=== PATIENT | female | born 1995 | race Caucasian/White ===

== ENCOUNTER 2020-11-13 16:02 | Emergency (ER) | payer OTHER ==
[~2020-11-13] VITALS: Ht 165.1 cm; Wt 71.5 kg
[2020-11-13] MEDS ORDERED: IBUP1TAB6 PO (16:11)
[2020-11-13] MEDS ORDERED: ONDANSETRON 4MG/2ML VIAL IV ONE ×2 (18:25→21:10)
[2020-11-13] MEDS ORDERED: MORPHINE 4 MG/ML 1ML VIAL/SYRINGE (J2270) IV ONE (18:25)
[2020-11-13] MEDS ORDERED: NS 1,000 ML IV ONE (18:25)
[2020-11-13 19:19] LABS: BASO % 0.4 % (0.0-1.0); EOS # 0.2 10^3/uL (0.0-0.5); EOS % 2.4 % (0.0-3.0); HEMATOCRIT 43.2 % (36.0-47.0); MEAN CORPUSCULAR HEMOGLOBIN 29.9 pg (27.0-33.0); MEAN CORPUSCULAR HGB CONC 34.7 g/dl (32.0-36.5); MEAN CORPUSCULAR VOLUME 86.1 fl (80.0-96.0); MONO # 0.6 10^3/uL (0.0-0.8); NEUTROPHILS # 4.2 10^3/uL (1.5-8.5); NEUTROPHILS % 60.9 % (36.0-66.0); PLATELET COUNT, AUTOMATED 211 10^3/uL (150-450); RED BLOOD COUNT 5.02 10^6/uL (4.00-5.40)
[2020-11-13 19:24] LABS: ALBUMIN 4.4 GM/DL (3.2-5.2); BILIRUBIN,DIRECT 0.1 MG/DL (0.0-0.2); BILIRUBIN,TOTAL 0.7 MG/DL (0.2-1.0); TOTAL PROTEIN 8.3 GM/DL (6.4-8.2)
--- NOTE | 2020-11-13 19:39 | REP ---
INDICATION: LLQ abd pain, known 2cm ovary cyst, severe pain. COMPARISON: None. TECHNIQUE: Multiple ultrasonographic images of the pelvis, transabdominal and Doppler imaging. FINDINGS: The uterus is anteverted and anteflexed. The uterus is upper normal size to mildly enlarged measuring 10.7 x 4.6 x 6.3 cm. The myometrium is unremarkable. The endometrium is not thickened measuring up to 7.9 mm. Right ovary: The right ovary measures 3.1 x 2.7 x 3.0 cm and is normal size. There is no dominant mass or cyst. Left ovary: Left ovary measures 3.5 x 2.7 x 3.6 cm and is normal size. There is a left ovarian cyst measuring 2.2 x 2.1 x 2.9 cm. There is vascular flow in both ovaries with the Doppler resistive index in the parenchymal arteries of the right ovary measuring 0.56 and left ovary measuring 0.79. There is a small volume of fluid in the cul-de-sac. IMPRESSION: Right ovarian cyst measuring up to 2.9 cm. No left ovarian mass or cyst. There is vascular flow in both ovaries. Uterus is anteverted and anteflexed. Small volume of free fluid in the cul-de-sac. <Electronically signed by Phillip Rubin > 11/13/201933
[2020-11-13] MEDS ORDERED: ISOVUE-370 76% 100ML VIAL As Ordered ONE (20:01)
[2020-11-13] MEDS ORDERED: KETOROLAC 30 MG/ML 1ML VIAL IV ONE (21:10)
--- NOTE | 2020-11-13 21:56 | REPVR ---
PROCEDURE INFORMATION: Exam: CT Abdomen And Pelvis With Contrast Exam date and time: 11/13/2020 8:47 PM Age: 25 years old Clinical indication: Abdominal pain; Localized; Left lower quadrant (llq); Additional info: Severe llq pain, UTI TECHNIQUE: Imaging protocol: Computed tomography of the abdomen and pelvis with contrast. Axial, coronal and sagittal reformatted images were created and reviewed. Radiation optimization: All CT scans at this facility use at least one of these dose optimization techniques: automated exposure control; mA and/or kV adjustment per patient size (includes targeted exams where dose is matched to clinical indication); or iterative reconstruction. Contrast material: ISOVUE 370; Contrast volume: 100 ml; Contrast route: INTRAVENOUS (IV); COMPARISON: US PELVIC NON-OB COMPLETE 11/13/2020 7:07 PM FINDINGS: Liver: Unremarkable. Gallbladder and bile ducts: No radiodense gallstones. No biliary ductal dilatation. Pancreas: Unremarkable. Spleen: Unremarkable. Adrenal glands: Normal. No mass. Kidneys and ureters: Subtle right greater than left renal cortical mottling/striation. No radiodense calculi. No hydronephrosis. Stomach and bowel: Moderate amount of retained stool in the colon. No obstruction. No bowel wall thickening. No pneumatosis. Appendix: Normal. Intraperitoneal space: Trace nonspecific free pelvic fluid, likely physiologic. No organized fluid collection. No free air. Vasculature: Unremarkable. No aneurysm. Lymph nodes: No pathologically enlarged lymph nodes. Urinary bladder: Unremarkable as visualized. Reproductive: 2.9 x 2.7 cm left adnexal cystic lesion, likely a follicular cyst. Bones/joints: No acute osseous abnormality. Soft tissues: Small, fat containing umbilical hernia. IMPRESSION: 1. Subtle right greater than left renal cortical mottling/striation, concerning for acute pyelonephritis. 2. 2.9 x 2.7 cm left adnexal cystic lesion, likely a follicular cyst. 3. Additional findings, as above. Electronically signed by: Otoniel Tan On 11/13/2020 21:56:07 PM
--- NOTE | 2020-11-13 21:58 | REPVR ---
PROCEDURE INFORMATION: Exam: XR Abdomen Exam date and time: 11/13/2020 9:04 PM Age: 25 years old Clinical indication: Constipation; Additional info: No bm 3 wks TECHNIQUE: Imaging protocol: XR of the abdomen. Views: Frontal supine view of the abdomen. 1 View. COMPARISON: CT ABD/PEL W/IV CONTRAST ONLY 11/13/2020 8:38 PM FINDINGS: Gastrointestinal tract: Moderate amount of retained stool in the colon. No obstruction. Bones/joints: Unremarkable. IMPRESSION: Moderate amount of retained stool in the colon. Electronically signed by: Otoniel Tan On 11/13/2020 21:58:15 PM
[2020-11-13 22:37] VITALS: BP 109/63
[2020-11-13] MEDS ORDERED: KETO10TAB PO (22:38)
[2020-11-13] MEDS ORDERED: ONDA4TAB6 PO (22:38)
[2020-11-13] MEDS ORDERED: POLYETHYLENE GLYCOL (MIRALAX) 238GM BOTTLE PO ONE (22:45)
[2020-11-13] MEDS ORDERED: MAGNESIUM CITRATE 300 ML BTL PO ONE (22:45)
[2020-11-13] MEDS ORDERED: NORCO 5/325MG TABLET (BULK FOR ED) PO ONE (22:45)
== END 2020-11-13 23:21 | disposition home or self-care (01) ==
LOC: M ED 22:49
DX: R10.32 Left lower quadrant pain (principal); K59.00 Constipation, unspecified; N10 Acute pyelonephritis; N83.201 Unspecified ovarian cyst, right side; N83.202 Unspecified ovarian cyst, left side; Z79.899 Other long term (current) drug therapy
CPT/HCPCS: 74018; 74177; 76856; 80047; 80076; 81001; 83690; 84702; 85025; 87086; 93976; 96361; 96374; 96375; 96376; 99284; J1885; J2270; J2405; Q9967

== ENCOUNTER → 2020-12-15 | Outpatient (CLI) | payer OTHER ==
[~2020-12-15] MED LIST: IBUP1TAB6 PO; KETO10TAB PO; ONDA4TAB6 PO
--- NOTE | 2020-12-16 09:20 | REP ---
INDICATION: FOLLICULAR CYST OF LEFT OVARY COMPARISON: 11/13/2020 TECHNIQUE: Transabdominal pelvic ultrasound followed by transvaginal examination for better evaluation of the endometrium and adnexa with color Doppler evaluation of the ovaries. FINDINGS: Bladder is unremarkable and measures 10.1 x 6.3 x 7.8 cm. Anteverted uterus measures 9.3 x 4.2 x 4.7 cm with suggestions for somewhat ill-defined 2.1 cm anterior intramural fibroid. The endometrial complex measures 5 mm thickness. No discrete uterine or endometrial abnormalities are appreciated. Bilateral ovaries are normal in vascularity without evidence for torsion. Right ovary measures 2.8 x 2.2 x 1.9 cm and includes 1.9 x 1.6 x 1.7 cm homogeneous isoechoic area suggesting possible hemorrhagic cyst; R I = 0.55. Left ovary measures 4.1 x 2.1 x 4.0 cm and includes 3.1 x 2.0 x 2.5 cm complex presumed involuting hemorrhagic cyst which appears more complex than prior examination; R I = 0.58. Small amount of free fluid noted in the pelvis. IMPRESSION: 1. Possible vague 2.1 cm anterior fibroid. 2. Ovarian changes as described above likely physiologic. Clinical correlation is recommended and if necessary 2nd follow-up examination at 4-6 weeks may be warranted. <Electronically signed by Graham Wilder > 12/16/20 [id number]
== END ==
LOC: M WHC 14:36
PROVIDERS: ATTEND Obstetrics & Gynecology
DX: N83.02 Follicular cyst of left ovary (principal)